=== PATIENT | female | born 1945 | race Two or more races ===

== ENCOUNTER 2021-02-11 05:35 | Day surgery (SDC) | payer OTHER ==
[2021-02-11] MEDS ORDERED: MACROBID 100 M100 MG PO (09:13)
[2021-02-11] MEDS ORDERED: ULTRACET PO (09:13)
== END 2021-02-11 12:00 | disposition home or self-care (01) ==
LOC: CIR.AMB 05:35
PROVIDERS: ATTEND Obstetrics & Gynecology Gynecology
DX: N81.3 Complete uterovaginal prolapse (principal); Z20.822 Contact with and (suspected) exposure to COVID-19